=== PATIENT | female | born 1970 | race Caucasian/White ===

== ENCOUNTER 2017-12-26 11:47 | Emergency (ER) | payer OTHER ==
[~2017-12-26] VITALS: Ht 162.6 cm; Wt 79.4 kg
[~2017-12-26 11:47] MED LIST: ANTIVERT25 M1 PO; ATENOLOL25 MG; INTESTINEX1 CAP PO; TOPROL XL50 M1 PO; bentyl PO
== END 2017-12-26 12:59 | disposition home or self-care (01) ==
LOC: ER 11:47
DX: G50.0 Trigeminal neuralgia (principal)

== ENCOUNTER 2022-06-23 11:48 | Emergency (ER) | payer OTHER ==
[~2022-06-23] VITALS: Ht 157.5 cm; Wt 81.6 kg
[2022-06-23] MEDS ORDERED: COZAAR25 MG PO (12:15)
== END 2022-06-23 15:20 | disposition home or self-care (01) ==
LOC: ER 11:48
DX: R07.89 Other chest pain (principal); Z20.828 Contact with and (suspected) exposure to other viral communicable diseases

== ENCOUNTER 2022-07-06 14:04 | Outpatient (CLI) | payer OTHER ==
[~2022-07-06 14:04] MED LIST changes: +COZAAR25 MG PO
== END 2022-07-06 14:05 | disposition home or self-care (01) ==
LOC: LAB 14:04
DX: Z20.822 Contact with and (suspected) exposure to COVID-19 (principal)